=== PATIENT | male | born 1965 | race Caucasian/White ===

== ENCOUNTER 2016-07-22 02:31 | Observation (INO) | payer OTHER ==
[~2016-07-22] VITALS: Ht 188 cm; Wt 118.0 kg
[2016-07-22] VITALS (8 sets, daily range): BP systolic 115–221; BP diastolic 72–121; PULSE 59–70; RESP 16–20; TEMP 97.4–98; O2SAT 95–98
[~2016-07-22 02:31] MED LIST: ADDE30TA PO; TIMO0.5S30 EACH EYE; TIMO0.5S4 EACH EYE
[2016-07-22] MEDS ORDERED: SODIUM CHLOR 0.9% 1000 ML INJ 1,000 ML IV SCH (03:37)
[2016-07-22] MEDS ORDERED: ONDANSETRON HCL 4 MG/2 ML VIAL IVP ONE (03:45)
[2016-07-22] MEDS ORDERED: MORPHINE SULFATE 4 MG/ML INJ IV PUSH ONE ×2 (03:45→05:30)
[2016-07-22] MEDS ORDERED: SODIUM CHLORIDE 0.9% FLUSH 5 ML FLUSH IVF PRN (03:45)
[2016-07-22 03:46] LABS: AUTOMATED NEUTROPHIL # 9.8 TH/MM3 (1.8-7.7); BASOPHIL % 0.4 % (0.0-2.0); EOSINOPHIL # 0.1 TH/MM3 (0-0.4); EOSINOPHIL % 0.9 % (0.0-4.0); HEMATOCRIT 50.4 % (39.0-51.0); HEMO FLAGS DIFF FINAL; LYMPH % 18.7 % (9.0-44.0); LYMPHOCYTE # 2.5 TH/MM3 (1.0-4.8); MEAN CELL VOLUME 87.9 FL (80.0-100.0); MEAN CORPUSCULAR HEMOGLOBIN 30.4 PG (27.0-34.0); MEAN CORPUSCULAR HGB CONC 34.6 % (32.0-36.0); MONO % 6.4 % (0.0-8.0); NEUT % 73.6 % (16.0-70.0); PLATELET COUNT 236 TH/MM3 (150-450); RED BLOOD COUNT 5.73 MIL/MM3 (4.50-5.90); RED CELL DISTRIBUTION WIDTH 14.3 % (11.6-17.2); WHITE BLOOD COUNT 13.3 TH/MM3 (4.0-11.0)
[2016-07-22 04:01] LABS: ALKALINE PHOSPHATASE 57 U/L (45-117); TOTAL BILIRUBIN ADULT 0.4 MG/DL (0.2-1.0)
[2016-07-22 04:02] LABS: ALT (GPT) 44 U/L (12-78); ANION GAP 10 MEQ/L (5-15); AST (GOT) 23 U/L (15-37); BICARBONATE 26.7 MEQ/L (21.0-32.0); BLOOD UREA NITROGEN 20 MG/DL (7-18); CHLORIDE 104 MEQ/L (98-107); GLOMERULAR FILTRATION RATE 62 ML/MIN (>89); POTASSIUM 3.6 MEQ/L (3.5-5.1); SODIUM (NA) 141 MEQ/L (136-145)
[2016-07-22 04:06] LABS: APTT (PATIENT) 29.1 SEC (24.3-30.1); PROTHROMBIN TIME - PATIENT 10.6 SEC (9.8-11.6)
[2016-07-22] MEDS ORDERED: IOHEXOL 350 MG/ML 10 ML VIAL (for RAD DIAG) IV ONE ×2 (04:45→04:57)
[2016-07-22] MEDS ORDERED: METOCLOPRAMIDE INJ 10 MG in SODIUM CHLORIDE 0.9% INJ 50 ML IV ONE (05:30)
--- NOTE | 2016-07-22 06:05 | RADRPT ---
EXAM DATE/TIME: 07/22/2016 04:37 [facility] COMPARISON: No previous studies available for comparison. INDICATIONS : Right abdominal pain. IV CONTRAST: 60 cc Omnipaque 350 (iohexol) IV ORAL CONTRAST: No oral contrast ingested. RADIATION DOSE: 11.22 CTDIvol (mGy) MEDICAL HISTORY : Hernia, inguinal. SURGICAL HISTORY : None. ENCOUNTER: Initial ACUITY: 1 day PAIN SCALE: 8/10 LOCATION: Right abdomen TECHNIQUE: Volumetric scanning of the abdomen and pelvis was performed. Using automated exposure control and ad justment of the mA and/or kV according to patient size, radiation dose was kept as low as reasonably achievable to obtain optimal diagnostic quality images. FINDINGS: LOWER LUNGS: There is mild atelectasis in the posterolateral left lung base LIVER: Homogeneous density without lesion. There is no dilation of the biliary tree. No calcified gallston es. SPLEEN: Normal size without lesion. PANCREAS: Within normal limits. KIDNEYS: Normal in size and shape. There is no mass, stone or hydronephrosis. ADRENAL GLANDS: Within normal limits. VASCULAR: There is no aortic aneurysm. BOWEL/MESENTERY: Occasional distal colonic diverticula. No abnormal dilatation, wall thickening or focal inflammatory changes. The appendix is seen and appears normal. No free fluid. ABDOMINAL WALL: Within normal limits. RETROPERITONEUM: There is no lymphadenopathy. BLADDER: No wall thickening or mass. REPRODUCTIVE: Within normal limits. INGUINAL: Clips on the right consistent with previous mesh hernia repair MUSCULOSKELETAL: Within normal limits for patient age. CONCLUSION: No acute CT findings in the abdomen or pelvis. Mild left basilar lung atelectasis Good Davison MD on July 22, 2016 at 6:00 Board Certified Radiologist. This report was verified electronically.
[2016-07-22 06:27] LABS: BLOOD, URINE SMALL (NEG); COMMENT (UR) CULT NOT INDICATED; CULTURE IF INDICATED CULT NOT INDICATED; GLUCOSE,URINE NEG (NEG); KETONE, URINE 40 mg/dL (NEG); MUCUS URINE FEW /lpf (OCC); NITRITE,URINE NEG (NEG); URINE COLOR LIGHT-YELLOW (YELLW/STRAW)
[2016-07-22] MEDS ORDERED: ONDANSETRON HCL 4 MG/2 ML VIAL IV PUSH ONE (07:45)
--- NOTE | 2016-07-22 07:56 | PD ---
HPI Chief Complaint: Abdominal Pain Time Seen by Provider: 03:37 Travel History International Travel<30 days: No Contact w/Intl Traveler<30days: No Traveled to known affect area: No History of Present Illness HPI Patient is a 51 year old male who comes in complaining of right sided abdominal pain with nausea and vomiting. He says this started two days ago. He did feel better yesterday until late evening when he started vomiting again. He denies fever or chills. He says he has had pancreatitis in the past and it felt like this. PFSH Past Medical History ADD: Yes Cancer: No Cardiovascular Problems: No Diabetes: No Endocrine: No Gastrointestinal Disorders: Yes (10MM LESION PANCREAS; 3MM GALLSTone BLACK TARRY STOOL NOW; GAS) Glaucoma: No Genitourinary: No Hepatitis: No Hiatal Hernia: No Hypertension: No Immune Disorder: No Medical other: Yes (HX LEFT INGUINAL HERNIA 1987) Musculoskeletal: Yes (HERNIATED DISK L4 L5; DGEN DISK DISEASE) Neurologic: No Psychiatric: Yes (ADD) Reproductive: No Respiratory: No Thyroid Disease: No Tetanus Vaccination: Unknown Past Surgical History Abdominal Surgery: Yes (1987 RIGHT INGUNIAL HERNIA left inguinal hernia repair ) AICD: No Cardiac Surgery: No Ear Surgery: No Endocrine Surgery: No Eye Surgery: No Genitourinary Surgery: No Gynecologic Surgery: No Joint Replacement: No Neurologic Surgery: No Oral Surgery: No Pacemaker: No Thoracic Surgery: No Other Surgery: Yes (HERNIA REPAIR) Social History Alcohol Use: Yes (SOCIALLY) Tobacco Use: Yes (1 PACK PER DAY, QUIT MAY 2009) Substance Use: No Allergies-Medications (Allergen,Severity, Reaction): Coded Allergies: Antifungal Antibiotics (Verified Allergy, Severe, Headache, 07/22/16) Reported Meds & Prescriptions Reported Meds & Active Scripts Active Timoptic-Xe Opth Gel (Timolol Opth Gel) 0.5 % Gel 1 Drop EACH EYE DAILYAC Reported Timolol Opth Drops 0.5 % Soln 1 Drop EACH EYE DAILY Adderall (Amphetamine-Dextroamphetamine) 30 Mg Tab 0.5 Tab PO BID Avoid late evening doses. Space doses at least 4 to 6 hours if more than once/day dosing. Review of Systems Except as stated in HPI: all other systems reviewed are Neg General / Constitutional: No: Fever HENT: No: Headaches Cardiovascular: No: Chest Pain or Discomfort Respiratory: No: Cough, Shortness of Breath Gastrointestinal: Positive: Nausea, Vomiting, Abdominal Pain, No: Diarrhea Genitourinary: No: Dysuria Musculoskeletal: No: Edema Skin: No Rash, No Change in Pigmentation Neurologic: No: Weakness, Dizziness Physical Exam Narrative GENERAL: Awake and alert, in no acute distress. SKIN: Diaphoretic HEAD: Atraumatic. Normocephalic. EYES: Pupils equal and round. No scleral icterus. ENT: Mucous membranes pink and moist. NECK: Trachea midline. No JVD. CARDIOVASCULAR: Regular rate and rhythm. No murmur appreciated. RESPIRATORY: No accessory muscle use. Clear to auscultation. Breath sounds equal bilaterally. GASTROINTESTINAL: Abdomen soft, nondistended. Mild diffuse tenderness to palpation, no rebound or guarding. MUSCULOSKELETAL: No obvious deformities. No clubbing. No cyanosis. No edema. NEUROLOGICAL: Awake and alert. No obvious cranial nerve deficits. Motor grossly within normal limits. Normal speech. PSYCHIATRIC: Appropriate mood and affect; insight and judgment normal. Data Data Last Documented VS Vital Signs Date Time Temp Pulse Resp B/P Pulse Ox O2 Delivery O2 Flow Rate FiO2 07/22/16 04:01 65 18 211/101 97 Room Air 07/22/16 02:34 97.9 Orders Complete Blood Count With Diff (07/22/16 03:37) Comprehensive Metabolic Panel (07/22/16 03:37) Prothrombin Time / Inr (Pt) (07/22/16 03:37) Act Partial Throm Time (Ptt) (07/22/16 03:37) Urinalysis - C+S If Indicated (07/22/16 03:37) Ua Includes Microscopic (07/22/16 03:37) Ct Abd/Pel W Iv Contrast(Rout) (07/22/16 03:37) Iv Access Insert/Monitor (07/22/16 03:37) Ecg Monitoring (07/22/16 03:37) Oximetry (07/22/16 03:37) Morphine Inj (Morphine Inj) (07/22/16 03:45) Ondansetron Inj (Zofran Inj) (07/22/16 03:45) Sodium Chlor 0.9% 1000 Ml Inj (Ns 1000 M (07/22/16 03:37) Sodium Chloride 0.9% Flush (Ns Flush) (07/22/16 03:45) Lipase (07/22/16 03:53) Iohexol 350 Inj (Omnipaque 350 Inj) (07/22/16 04:57) Metoclopramide Inj (Reglan Inj) (07/22/16 05:30) Morphine Inj (Morphine Inj) (07/22/16 05:30) Admit Order (Ed Use Only) (07/22/16 ) Ondansetron Inj (Zofran Inj) (07/22/16 07:45) Labs Laboratory Tests Test 07/22/16 07/22/16 03:10 03:15 Urine Color LIGHT-YELLOW Urine Turbidity CLEAR Urine pH 7.0 Urine Specific [place] 1.050 Urine Protein TRACE mg/dL Urine Glucose (UA) NEG mg/dL Urine Ketones 40 mg/dL Urine Occult Blood SMALL Urine Nitrite NEG Urine Bilirubin NEG Urine Urobilinogen LESS THAN 2.0 MG/DL Urine Leukocyte Esterase NEG Urine RBC 27 /hpf Urine WBC 1 /hpf Urine Mucus FEW /lpf Microscopic Urinalysis Comment CULT NOT INDICATED White Blood Count 13.3 TH/MM3 Red Blood Count 5.73 MIL/MM3 Hemoglobin 17.4 GM/DL Hematocrit 50.4 % Mean Corpuscular Volume 87.9 FL Mean Corpuscular Hemoglobin 30.4 PG Mean Corpuscular Hemoglobin 34.6 % Concent Red Cell Distribution Width 14.3 % Platelet Count 236 TH/MM3 Mean Platelet Volume 7.9 FL Neutrophils (%) (Auto) 73.6 % Lymphocytes (%) (Auto) 18.7 % Monocytes (%) (Auto) 6.4 % Eosinophils (%) (Auto) 0.9 % Basophils (%) (Auto) 0.4 % Neutrophils # (Auto) 9.8 TH/MM3 Lymphocytes # (Auto) 2.5 TH/MM3 Monocytes # (Auto) 0.9 TH/MM3 Eosinophils # (Auto) 0.1 TH/MM3 Basophils # (Auto) 0.0 TH/MM3 CBC Comment DIFF FINAL Differential Comment Prothrombin Time 10.6 SEC Prothromb Time International 1.0 RATIO Ratio Activated Partial 29.1 SEC Thromboplast Time Sodium Level 141 MEQ/L Potassium Level 3.6 MEQ/L Chloride Level 104 MEQ/L Carbon Dioxide Level 26.7 MEQ/L Anion Gap 10 MEQ/L Blood Urea Nitrogen 20 MG/DL Creatinine 1.23 MG/DL Estimat Glomerular Filtration 62 ML/MIN Rate Random Glucose 124 MG/DL Calcium Level 9.2 MG/DL Total Bilirubin 0.4 MG/DL Aspartate Amino Transf 23 U/L (AST/SGOT) Alanine Aminotransferase 44 U/L (ALT/SGPT) Alkaline Phosphatase 57 U/L Total Protein 8.0 GM/DL Albumin 4.3 GM/DL Lipase 202 U/L MDM Medical Decision Making Medical Screen Exam Complete: Yes Emergency Medical Condition: Yes Differential Diagnosis Gastroenteritis versus cholecystitis versus pancreatitis Narrative Course Patient is a 51-year-old male who comes in complaining of abdominal pain, nausea , vomiting. Exam shows mild diffuse tenderness to the abdomen. IV established , labs sent. Labs show mild elevation of white blood cell count. Patient given IV fluids, Zofran, morphine. CT abdomen and pelvis show no acute findings. Patient continues to feel nauseous and have pain. Given additional dose of morphine and Reglan. Patient given water to drink, and started to vomit again. Given additional Zofran and then placed in observation for further management. Diagnosis Primary Impression: Intractable vomiting Qualified Code: R11.2 - Intractable vomiting with nausea, unspecified vomiting type Admitting Information Admitting Physician Requests: Observation Lidia Lockett MD Jul 22, 2016 07:56
--- NOTE | 2016-07-22 08:59 | HHI.HP ---
HPI Service [facility] Hospitalists Primary Care Physician Loren Salomon M.D. Admission Diagnosis Intractable vomiting Chief Complaint: Vomiting Travel History International Travel<30 Days: No Contact w/Intl Traveler <30 Da: No Traveled to Known Affected Are: No History of Present Illness Mr. Castillo is a pleasant 51 y/o WM with ADD, GERD, diverticulosis, and presented to the ED on 07/22/16 with complaint of right sided abdominal pain with associated nausea and vomiting. He states that the symptoms started two days ago. He has not been eating much since the symptoms began. He states that the pain is located in the right flank area almost under the shoulder blade on the right. No radiation of the pain. He has had significant sweats and chills and profuse vomiting. Yesterday afternoon the symptoms did let up for about 8 hours and he was able to drink a cappuccino in the early afternoon. Then late yesterday evening he started vomiting again. He says he has had pancreatitis in the past related to gallstones and it felt similar to this but his LFTs and lipase were WNL at admission. CT Abd/pelvis with IV contrast in the ED was negative for any evidence of gallstones or pancreatitis. His blood pressure has been significantly elevated since arrival to the ED. He denies any hx of elevated blood pressure. Pt noted to have some RBC in his urine but denies any known hx of nephrolithiasis. Denies any hematuria, dysuria, urinary hesitancy or frequency. Review of Systems Constitutional: COMPLAINS OF: Chills, Night Sweats Eyes: DENIES: Vision loss Ears, nose, mouth, throat: DENIES: Hearing loss, Running Nose, Sinus Pain Respiratory: DENIES: Cough, Wheezing, Shortness of breath Cardiovascular: DENIES: Chest pain, Lower Extremity Edema Gastrointestinal: COMPLAINS OF: Abdominal pain, Nausea, Vomiting, DENIES: Black stools, Bloody stools, Diarrhea Genitourinary: DENIES: Urgency, Hematuria, Dysuria Integumentary: DENIES: Rash Neurologic: DENIES: Headache Psychiatric: DENIES: Confusion Past Family Social History Past Medical History ADD Glaucoma GERD Hx of gallstone pancreatitis Reported hx of pancreatic cyst Tobacco use Herniated lumbar discs Past Surgical History Bilateral inguinal hernia repairs Left hand surgery for flexor tendon nerve laceration repair Reported Medications Timolol Opth Drops 0.5 % Soln 1 Drop EACH EYE DAILY Adderall (Amphetamine-Dextroamphetamine) 30 Mg Tab 0.5 Tab PO BID Avoid late evening doses. Space doses at least 4 to 6 hours if more than once/day dosing. 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 HEENT: Atraumatic. Normocephalic. No temporal or scalp tenderness. No scleral icterus. Airway patent. NECK: Trachea midline, supple, nontender. CARDIO: Regular. RESP: CTA bilaterally. No wheezes, rales, or rhonchi. ABD: +BS, soft, non-tender, nondistended. EXT: Extremities without clubbing, cyanosis, or edema. NEURO: Awake and alert. Motor and sensory grossly within normal limits. Normal speech. Laboratory Laboratory Tests Test 07/22/16 07/22/16 03:10 03:15 Urine Color LIGHT-YELLOW Urine Turbidity CLEAR Urine pH 7.0 Urine Specific [place] 1.050 Urine Protein TRACE Urine Glucose (UA) NEG Urine Ketones 40 Urine Occult Blood SMALL Urine Nitrite NEG Urine Bilirubin NEG Urine Urobilinogen LESS THAN 2.0 Urine Leukocyte Esterase NEG Urine RBC 27 Urine WBC 1 Urine Mucus FEW Microscopic Urinalysis Comment CULT NOT INDICATED White Blood Count 13.3 Red Blood Count 5.73 Hemoglobin 17.4 Hematocrit 50.4 Mean Corpuscular Volume 87.9 Mean Corpuscular Hemoglobin 30.4 Mean Corpuscular Hemoglobin 34.6 Concent Red Cell Distribution Width 14.3 Platelet Count 236 Mean Platelet Volume 7.9 Neutrophils (%) (Auto) 73.6 Lymphocytes (%) (Auto) 18.7 Monocytes (%) (Auto) 6.4 Eosinophils (%) (Auto) 0.9 Basophils (%) (Auto) 0.4 Neutrophils # (Auto) 9.8 Lymphocytes # (Auto) 2.5 Monocytes # (Auto) 0.9 Eosinophils # (Auto) 0.1 Basophils # (Auto) 0.0 CBC Comment DIFF FINAL Differential Comment Prothrombin Time 10.6 Prothromb Time International 1.0 Ratio Activated Partial 29.1 Thromboplast Time Sodium Level 141 Potassium Level 3.6 Chloride Level 104 Carbon Dioxide Level 26.7 Anion Gap 10 Blood Urea Nitrogen 20 Creatinine 1.23 Estimat Glomerular Filtration 62 Rate Random Glucose 124 Calcium Level 9.2 Total Bilirubin 0.4 Aspartate Amino Transf 23 (AST/SGOT) Alanine Aminotransferase 44 (ALT/SGPT) Alkaline Phosphatase 57 Total Protein 8.0 Albumin 4.3 Lipase 202 Result Diagram: 07/22/1631407/22/16314 Imaging Last Impressions Abdomen/Pelvis CT 07/22/16336 Signed Impressions: Service Date/Time: Friday, July 22, 2016 04:37 - CONCLUSION: No acute CT findings in the abdomen or pelvis. Mild left basilar lung atelectasis Good Davison MD Septic Shock Reassessment Heart: Regular rate and rhythm Lungs: Clear Skin: Warm Peripheral Pulses: Bounding Right Radial Bounding Left Radial Bounding Right Popliteal Bounding Left Popliteal Bounding Right Dorsalis Pedis Bounding Left Dorsalis Pedis Bounding Right Posterior Tibial Bounding Left Posterior Tibial Capillary Refill: <2 seconds Assessment and Plan Problem List: (1) Intractable vomiting Status: Acute Plan: - Pt admitted with a 3 day history of right flank pain, nausea/vomiting, chills and sweats - Etiology unclear, possibly gastroenteritis vs. cholecystitis vs. PUD vs. nephrolithiasis vs. other. - No recent travel, no new medications, denies any NSAID use, denies any sick contacts. No urinary symptoms. - Labs at admission noted a mildly elevated WBC count - LFTs and Lipase are normal - CT Abd/pelvis with IV contrast was essentially negative for gallstones or pancreatitis. - Check GB US - Check Amylase - IVF - Clear liquid diet - Zofran PRN - Tylenol PRN - If pt does not improve symptomatically consider GI consultation - DVT prophylaxis with SCDs (2) Abdominal pain Status: Acute Plan: - See above. (3) Elevated blood pressure reading Status: Acute Plan: - Clonidine PRN - Vasotec PRN - Review of outpt vital reading indicate pt normally has a controlled blood pressure and is not on any medications for this. (4) GERD (gastroesophageal reflux disease) Status: Chronic Plan: - PPI Assessment and Plan Patient examined. Assessment and plan formulated with Zara James PA-C. I agree with the above. Problem Qualifiers (1) Intractable vomiting: Qualified Code: R11.2 - Intractable vomiting with nausea, unspecified vomiting type Zara James Jul 22, 2016 08:59 Alphonso Carballo DO Jul 25, 2016 13:52
[2016-07-22] MEDS ORDERED: ACETAMINOPHEN 325 MG TAB PO PRN (09:00)
[2016-07-22] MEDS ORDERED: ONDANSETRON HCL 4 MG/2 ML VIAL IV PRN (09:00)
[2016-07-22] MEDS ORDERED: cloNIDine HCL 0.1 MG TAB PO PRN (09:30)
[2016-07-22] MEDS ORDERED: ENALAPRILAT 1.25 MG/ML VIAL IV PUSH PRN (09:30)
[2016-07-22] MEDS: TIMOLOL MALEATE 0.5% OPHT SOLN 5 ML BTL EACH EYE SCH (09:36)
[2016-07-22] MEDS: SODIUM CHLOR 0.9% 1000 ML INJ 1,000 ML IV SCH (09:36)
--- NOTE | 2016-07-22 10:18 | RADRPT ---
EXAM DATE/TIME: 07/22/2016 09:47 [facility] COMPARISON: No previous studies available for comparison. INDICATIONS : Right upper quadrant pain. MEDICAL HISTORY : Glaucoma. SURGICAL HISTORY : Hernia. Hand surgery. ENCOUNTER: Initial ACUITY: 2 days PAIN SCORE: 4/10 LOCATION: Right upper quadrant MEASUREMENTS: LIVER: 19.0 cm length COMMON DUCT: 3 mm RIGHT KIDNEY: 13.0 x 7.2 x 6.2 cm FINDINGS: LIVER: Normal echotexture without focal lesion or ductal dilatation. Hepatopedal flow. COMMON DUCT: No intraluminal mass or stone visualized. GALLBLADDER: Contains no stones, demonstrates no wall thickening or pericholecystic fluid. PANCREAS: The visualized portions are within normal limits. RIGHT KIDNEY: No evidence of hydronephrosis, stone, or mass. CONCLUSION: 1. Liver slightly enlarged. 2. No evidence for cholelithiasis. Jaime Gonzalez MD on July 22, 2016 at 10:11 Board Certified Radiologist. This report was verified electronically.
[2016-07-22] MEDS: PANTOPRAZOLE SODIUM 40 MG VIAL IV PUSH SCH ×2 (10:57→21:22)
[2016-07-23] MEDS ORDERED: TEMAZEPAM 15 MG CAP PO PRN (01:45)
[2016-07-23] MEDS: SODIUM CHLOR 0.9% 1000 ML INJ 1,000 ML IV SCH (02:53)
[2016-07-23 04:06] VITALS: BP 152/82; PULSE 58; RESP 20; TEMP 98; O2SAT 98
[2016-07-23 07:18] LABS: AUTOMATED NEUTROPHIL # 3.6 TH/MM3 (1.8-7.7); BASOPHIL % 0.4 % (0.0-2.0); EOSINOPHIL # 0.1 TH/MM3 (0-0.4); EOSINOPHIL % 1.9 % (0.0-4.0); HEMO FLAGS DIFF FINAL; LYMPH % 45.7 % (9.0-44.0); LYMPHOCYTE # 3.6 TH/MM3 (1.0-4.8); MEAN CELL VOLUME 89.2 FL (80.0-100.0); MEAN CORPUSCULAR HEMOGLOBIN 30.5 PG (27.0-34.0); MEAN CORPUSCULAR HGB CONC 34.2 % (32.0-36.0); MONO % 6.8 % (0.0-8.0); NEUT % 45.2 % (16.0-70.0); PLATELET COUNT 171 TH/MM3 (150-450); RED CELL DISTRIBUTION WIDTH 13.8 % (11.6-17.2); WHITE BLOOD COUNT 7.9 TH/MM3 (4.0-11.0)
[2016-07-23 07:34] LABS: ALKALINE PHOSPHATASE 41 U/L (45-117); ALT (GPT) 29 U/L (12-78); ANION GAP 6 MEQ/L (5-15); AST (GOT) 11 U/L (15-37); BICARBONATE 27.6 MEQ/L (21.0-32.0); BLOOD UREA NITROGEN 10 MG/DL (7-18); CHLORIDE 108 MEQ/L (98-107); GLOMERULAR FILTRATION RATE 88 ML/MIN (>89); POTASSIUM 3.5 MEQ/L (3.5-5.1); SODIUM (NA) 142 MEQ/L (136-145); TOTAL BILIRUBIN ADULT 0.3 MG/DL (0.2-1.0)
[2016-07-23 07:50] VITALS: BP 147/85; PULSE 52; RESP 18; TEMP 97.7; O2SAT 95
[2016-07-23] MEDS: TIMOLOL MALEATE 0.5% OPHT SOLN 5 ML BTL EACH EYE SCH (09:00)
[2016-07-23] MEDS ORDERED: PROT40TA PO (09:02)
--- NOTE | 2016-07-23 09:04 | HHI.DCPOC ---
Discharge Care Plan Diagnosis: (1) Abdominal pain (2) Intractable vomiting (3) GERD (gastroesophageal reflux disease) Goals to Promote Your Health * To prevent worsening of your condition and complications * To maintain your health at the optimal level Directions to Meet Your Goals Take your medications as prescribed Follow your dietary instruction Follow activity as directed Keep your appointments as scheduled Take your immunizations and boosters as scheduled If your symptoms worsen call your PCP, if no PCP go to Urgent Care Center or Emergency Room Smoking is Dangerous to Your Health. Avoid second hand smoke Call the 24-hour hour crisis hotline for domestic abuse at Zara James Jul 23, 2016 09:04 Alphonso Carballo DO Jul 25, 2016 13:53
--- NOTE | 2016-07-23 09:11 | HHI.PR ---
Subjective Remarks Pt feeling better today. He has tolerated the clear liquids. Denies any further abdominal pain. He has not had any further vomiting. BP is better today. Objective Vitals Vital Signs Date Time Temp Pulse Resp B/P Pulse Ox O2 Delivery O2 Flow Rate FiO2 07/23/16 07:50 97.7 52 18 147/85 95 07/23/16 04:06 98.0 58 20 152/82 98 07/22/16 23:39 97.4 63 20 141/80 97 07/22/16 19:30 97.6 70 20 132/87 96 07/22/16 16:57 98.0 59 16 146/87 95 07/22/16 15:00 61 16 132/76 98 Room Air 07/22/16 10:50 61 16 115/72 98 Room Air Result Diagram: 07/23/1617 07/23/16616 Other Results Laboratory Tests Test 07/22/16 07/22/16 07/23/16 03:10 03:15 06:17 Urine Color LIGHT-YELLOW Urine Turbidity CLEAR Urine pH 7.0 Urine Specific [place] 1.050 Urine Protein TRACE mg/dL Urine Glucose (UA) NEG mg/dL Urine Ketones 40 mg/dL Urine Occult Blood SMALL Urine Nitrite NEG Urine Bilirubin NEG Urine Urobilinogen LESS THAN 2.0 MG/DL Urine Leukocyte Esterase NEG Urine RBC 27 /hpf Urine WBC 1 /hpf Urine Mucus FEW /lpf Microscopic Urinalysis Comment CULT NOT INDICATED White Blood Count 13.3 TH/MM3 7.9 TH/MM3 Red Blood Count 5.73 MIL/MM3 4.60 MIL/MM3 Hemoglobin 17.4 GM/DL 14.0 GM/DL Hematocrit 50.4 % 41.0 % Mean Corpuscular Volume 87.9 FL 89.2 FL Mean Corpuscular Hemoglobin 30.4 PG 30.5 PG Mean Corpuscular Hemoglobin 34.6 % 34.2 % Concent Red Cell Distribution Width 14.3 % 13.8 % Platelet Count 236 TH/MM3 171 TH/MM3 Mean Platelet Volume 7.9 FL 7.9 FL Neutrophils (%) (Auto) 73.6 % 45.2 % Lymphocytes (%) (Auto) 18.7 % 45.7 % Monocytes (%) (Auto) 6.4 % 6.8 % Eosinophils (%) (Auto) 0.9 % 1.9 % Basophils (%) (Auto) 0.4 % 0.4 % Neutrophils # (Auto) 9.8 TH/MM3 3.6 TH/MM3 Lymphocytes # (Auto) 2.5 TH/MM3 3.6 TH/MM3 Monocytes # (Auto) 0.9 TH/MM3 0.5 TH/MM3 Eosinophils # (Auto) 0.1 TH/MM3 0.1 TH/MM3 Basophils # (Auto) 0.0 TH/MM3 0.0 TH/MM3 CBC Comment DIFF FINAL DIFF FINAL Differential Comment Prothrombin Time 10.6 SEC Prothromb Time International 1.0 RATIO Ratio Activated Partial 29.1 SEC Thromboplast Time Sodium Level 141 MEQ/L 142 MEQ/L Potassium Level 3.6 MEQ/L 3.5 MEQ/L Chloride Level 104 MEQ/L 108 MEQ/L Carbon Dioxide Level 26.7 MEQ/L 27.6 MEQ/L Anion Gap 10 MEQ/L 6 MEQ/L Blood Urea Nitrogen 20 MG/DL 10 MG/DL Creatinine 1.23 MG/DL 0.91 MG/DL Estimat Glomerular Filtration 62 ML/MIN 88 ML/MIN Rate Random Glucose 124 MG/DL 96 MG/DL Calcium Level 9.2 MG/DL 8.0 MG/DL Total Bilirubin 0.4 MG/DL 0.3 MG/DL Aspartate Amino Transf 23 U/L 11 U/L (AST/SGOT) Alanine Aminotransferase 44 U/L 29 U/L (ALT/SGPT) Alkaline Phosphatase 57 U/L 41 U/L Total Protein 8.0 GM/DL 5.9 GM/DL Albumin 4.3 GM/DL 3.0 GM/DL Amylase Level 82 U/L Lipase 202 U/L 161 U/L Imaging Last Impressions Abdomen/Pelvis CT 07/22/16 0337 Signed Impressions: Service Date/Time: Friday, July 22, 2016 04:37 - CONCLUSION: No acute CT findings in the abdomen or pelvis. Mild left basilar lung atelectasis Good Davison MD Gall Bladder Ultrasound 07/22/16 0000 Signed Impressions: Service Date/Time: Friday, July 22, 2016 09:47 - CONCLUSION: 1. Liver slightly enlarged. 2. No evidence for cholelithiasis. Jaime Gonzalez MD Objective Remarks General: NAD, AAOx3 Chest: CTA Cardiac: Regular Abd: +BS, soft ND/NT Ext: No edema A/P Problem List: (1) Intractable vomiting Status: Acute Plan: - Pt admitted with a 3 day history of right flank pain, nausea/vomiting, chills and sweats - Pt informs me that he has been using Naproxen regularly for chronic back pain , etiology may be secondary PUD - No recent travel, no new medications, denies any sick contacts. No urinary symptoms. - Labs at admission noted a mildly elevated WBC count - LFTs and Lipase are normal - CT Abd/pelvis with IV contrast was essentially negative for gallstones or pancreatitis. - GB US --> Liver slightly enlarged. No evidence for cholelithiasis. - Stop IVF - Advance diet as tolerated, if he tolerates advanced diet he will be discharged later today. - Pt is to followup with his PCP, Dr. Salomon, in 1 week - Pt is to reschedule his appt with [facility] - Avoid all NSAIDs - Tylenol PRN for back pain. (2) Abdominal pain Status: Acute Plan: - See above. (3) Elevated blood pressure reading Status: Acute Plan: - BP has improved today. - Clonidine PRN - Vasotec PRN - Review of outpt vital reading indicate pt normally has a controlled blood pressure and is not on any medications for this. (4) GERD (gastroesophageal reflux disease) Status: Chronic Plan: - PPI Assessment and Plan Patient examined. Assessment and plan formulated with Zara James PA-C. I agree with the above. Problem Qualifiers (1) Intractable vomiting: Qualified Code: R11.2 - Intractable vomiting with nausea, unspecified vomiting type Zara James Jul 23, 2016 09:11 Alphonso Carballo DO Jul 25, 2016 13:52
[2016-07-23] MEDS: PANTOPRAZOLE SODIUM 40 MG VIAL IV PUSH SCH (09:17)
[2016-07-23] MEDS ORDERED: ACET1CAP18 PO (11:41)
[2016-07-23] MEDS ORDERED: NORC5TAB PO (11:41)
[2016-07-23 11:55] VITALS: BP 152/92; PULSE 57; RESP 18; TEMP 97.7; O2SAT 97
[2016-11-04] MEDS ORDERED: TIMO0.5S30 EACH EYE (09:56)
== END 2016-07-23 13:52 | disposition home or self-care (01) ==
LOC: NEPE 02:31 → NEDA 07:40 → NEDH 11:32 → NEPHCDU 17:09
PROVIDERS: ADMIT Hospitalist; ATTEND Hospitalist
DX: K57.90 Diverticulosis of intestine, part unspecified, without perforation or abscess without bleeding (principal); R03.0 Elevated blood-pressure reading, without diagnosis of hypertension; R10.9 Unspecified abdominal pain; R11.2 Nausea with vomiting, unspecified; R61 Generalized hyperhidrosis; K21.9 Gastro-esophageal reflux disease without esophagitis; R68.83 Chills (without fever); J98.11 Atelectasis; Z87.891 Personal history of nicotine dependence
CPT/HCPCS: 74177; 76705; 80053; 81001; 82150; 83690; 85025; 85610; 85730; 96361; 96365; 96375; 96376; 99285; C9113; G0378; J2270; J2405; J2765; J7030; Q9967